=== PATIENT | female | born 1960 | race Caucasian/White ===

== ENCOUNTER 2022-09-30 10:53 | Outpatient (CLI) | payer OTHER, SELFPAY ==
[2022-09-30 11:24] LABS: Hematocrit 53.7 % (37.0-47.0); Hemoglobin 17.4 g/dL (12.0-15.0); Mean Corpuscular HGB Conc 32.4 g/dl (32-36); Mean Corpuscular Hemoglobin 31.2 pg (26-34); Mean Corpuscular Volume 96.4 fl (80-100); Platelet Count Result 192 k/mm3 (150-375); Red Blood Count 5.57 M/mm3 (4.2-5.4); Red Cell Distribution Width 13.9 % (11.5-14.5); White Blood Count 7.7 K/mm3 (4.5-10.0)
[2022-09-30 11:35] LABS: Creatinine Urine 115.2 mg/dL; Total Protein Urine Random 7 mg/dL; Ur Ttl Prot Creatinine Ratio 0.06 mg/mg (0-0.20)
[2022-09-30 11:36] LABS: Alanine Aminotransferase 31 U/L (6-35); Albumin Level 4.8 g/dL (3.5-5.1); Alkaline Phosphatase 54 U/L (38-126); Anion Gap 9 mmol/L (8-16); Aspartate Amino Transferase 33 U/L (14-36); Bilirubin,Total 0.7 mg/dL (0.2-1.3); Blood Urea Nitrogen 32 mg/dL (7-17); CRP 0.5 mg/dL (<1.0); Calcium 9.6 mg/dL (8.4-10.2); Carbon Dioxide 34 mmol/L (22-30); Chloride 99 mmol/L (98-107); Estimated Glomerular Filt Rate > 60; Glucose 99 mg/dL (65-110); Potassium 3.4 mmol/L (3.4-5.0); Sodium 142 mmol/L (137-145)
[2022-09-30 11:41] LABS: Complement C3 111 mg/dL (88-165)
[2022-09-30 14:53] LABS: Erythrocyte Sedimentation Rate 4 mm/hr (0-20)
[2022-10-04 03:12] LABS: Angiotensin Converting Enzyme <5 U/L (9-67)
[2022-10-05 11:41] LABS: Histone Antibody <1.0 U (<1.0)
[2022-10-06 12:47] LABS: Anti Nuclear Antibody Pattern Nuclear, Speckled; Anti Nuclear Antibody Titer >=1:1280 (Negative)
[2022-10-08 00:55] LABS: ANCA Screen Negative (Negative)
== END 2022-09-30 10:54 | disposition home or self-care (01) ==
PROVIDERS: Visit Provider Internal Medicine
DX: M35.9 Systemic involvement of connective tissue, unspecified (principal); J84.89 Other specified interstitial pulmonary diseases; I27.20 Pulmonary hypertension, unspecified; M19.90 Unspecified osteoarthritis, unspecified site
CPT/HCPCS: 36415; 80053; 82164; 82570; 84156; 85027; 85652; 86036; 86038; 86039; 86140; 86160; 86364